=== PATIENT | female | born 2005 | race Caucasian/White ===

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

== ENCOUNTER 2024-08-19 12:41 | Emergency (ER) | payer MEDICAID, OTHER ==
[~2024-08-19] VITALS: Ht 162.6 cm; Wt 53.0 kg
[~2024-08-19 12:41] MED LIST changes: +ONDA-243 PO
[2024-08-19 12:45] VITALS: TEMP 98.8
[2024-08-19 13:45] VITALS: BP 117/72; O2SAT 100
[2024-08-19] MEDS: ondansetron 4mg rapidly disintigrating tab PO ONE ×2 (14:15→14:51)
[2024-08-19] MEDS ORDERED: ONDA-243 PO (14:35)
[2024-08-19 14:46] LABS: URINE HCG NEGATIVE (NEG)
[2024-08-19 14:52] VITALS: PULSE 82; RESP 16
== END 2024-08-19 14:54 | disposition home or self-care (01) ==
LOC: ER 12:42
DX: A08.4 Viral intestinal infection, unspecified (principal); F32.A Depression, unspecified
CPT/HCPCS: 81025; 99283; J7030